=== PATIENT | female | born 1975 | race Caucasian/White ===

== ENCOUNTER 2021-04-24 09:24 | Emergency (ER) | payer MEDICAID ==
[~2021-04-24] VITALS: Ht 160 cm; Wt 73.0 kg
[2021-04-24] MEDS ORDERED: FLUCONAZOLE 100MG TABLET PO ONE (10:30)
[2021-04-24] MEDS ORDERED: FLUCONAZOLE 150MG TABLET PO NR (11:00)
[2021-04-24 11:44] VITALS: BP 140/78
[2021-04-26 04:08] LABS: NEISSERIA GONORRHOEAE NAA Negative (Negative)
== END 2021-04-24 11:45 | disposition home or self-care (01) ==
LOC: ER 09:31
DX: N76.0 Acute vaginitis (principal); I10 Essential (primary) hypertension; E11.9 Type 2 diabetes mellitus without complications; E78.00 Pure hypercholesterolemia, unspecified; Z98.51 Tubal ligation status
CPT/HCPCS: 87210; 87491; 87591; 99283; Z7610

== ENCOUNTER 2021-06-04 17:38 | Emergency (ER) | payer MEDICAID ==
[~2021-06-04] VITALS: Ht 167.6 cm; Wt 82.0 kg
[2021-06-04] MEDS ORDERED: TC1U15 TP (20:18)
[2021-06-04 20:32] VITALS: BP 149/68
== END 2021-06-04 20:49 | disposition home or self-care (01) ==
LOC: ER 17:38
DX: E11.65 Type 2 diabetes mellitus with hyperglycemia (principal); Z91.128 Patient's intentional underdosing of medication regimen for other reason; R94.31 Abnormal electrocardiogram [ECG] [EKG]; S40.862A Insect bite (nonvenomous) of left upper arm, initial encounter; S40.861A Insect bite (nonvenomous) of right upper arm, initial encounter; W57.XXXA Bitten or stung by nonvenomous insect and other nonvenomous arthropods, initial encounter; Y93.89 Activity, other specified; Y92.89 Other specified places as the place of occurrence of the external cause; Z79.4 Long term (current) use of insulin
CPT/HCPCS: 82962; 93005; 99284

== ENCOUNTER 2021-08-02 10:09 | Emergency (ER) | payer MEDICAID ==
[~2021-08-02] VITALS: Ht 154.9 cm; Wt 72.0 kg
[~2021-08-02 10:09] MED LIST: TC1U15 TP
[2021-08-02 11:58] LABS: BASOPHILS % 0.4 % (0.0-2.0); EOSINOPHILS % 0.4 % (0.0-5.0); HEMOGLOBIN. 14.3 g/dL (12.0-16.0); LYMPHOCYTES % 28.8 % (20.0-50.0); MEAN CORPUSCULAR HEMOGLOBIN 31.1 pg (28.0-32.0); MEAN CORPUSCULAR VOLUME 91.5 fL (81.0-99.0); MEAN PLATELET VOLUME 8.4 fl (7.4-10.4); MONOCYTES % 6.6 % (2.0-8.0); NEUTROPHILS % 63.8 % (40.0-76.0); PLATELET 241 x1000/uL (130-400); RED BLOOD CELL COUNT 4.59 mill/uL (4.2-5.4); RED CELL DISTRIBUTION WIDTH 13.2 % (11.6-14.6)
[2021-08-02 11:59] LABS: CHLORIDE 103 mEq/L (98-107)
[2021-08-02 14:42] LABS: CLARITY URINE CLEAR (CLEAR); COLOR URINE DARK YELLOW (YELLOW); KETONES URINE 3+ (NEGATIVE); LEUKOCYTE ESTERASE URINE NEGATIVE (NEGATIVE); NITRITE URINE NEGATIVE (NEGATIVE); OCCULT BLOOD URINE NEGATIVE (NEGATIVE); PH URINE 5.5 (4.5-8.0); PROTEIN URINE 1+ (NEGATIVE); SPECIFIC GRAVITY URINE 1.047 (1.005-1.030); UROBILINOGEN URINE 0.2 E.U./dL (0.2-1.0)
[2021-08-02 15:40] VITALS: BP 127/76
== END 2021-08-02 15:41 | disposition home or self-care (01) ==
LOC: ER 10:09
DX: R61 Generalized hyperhidrosis (principal); E11.65 Type 2 diabetes mellitus with hyperglycemia; I10 Essential (primary) hypertension; E78.5 Hyperlipidemia, unspecified
CPT/HCPCS: 36415; 80053; 81003; 82962; 84443; 85025; 99283

== ENCOUNTER 2021-12-30 15:04 | Emergency (ER) | payer MEDICAID ==
[~2021-12-30] VITALS: Ht 165.1 cm; Wt 65.0 kg
[2021-12-30] MEDS ORDERED: DOCU100T PO (17:58)
[2021-12-30 18:17] VITALS: BP 128/75
== END 2021-12-30 18:18 | disposition home or self-care (01) ==
LOC: ER 15:04
DX: K62.5 Hemorrhage of anus and rectum (principal); E78.00 Pure hypercholesterolemia, unspecified; I10 Essential (primary) hypertension; E11.9 Type 2 diabetes mellitus without complications; Z98.51 Tubal ligation status
CPT/HCPCS: 99282

== ENCOUNTER 2022-03-30 10:10 | Emergency (ER) | payer MEDICAID, OTHER ==
[~2022-03-30] VITALS: Ht 157.5 cm; Wt 68.0 kg
[~2022-03-30 10:10] MED LIST changes: +DOCU100T PO
[2022-03-30 10:28] VITALS: BP 116/61
== END 2022-03-30 12:28 | disposition home or self-care (01) ==
LOC: ER 10:10
DX: F41.9 Anxiety disorder, unspecified (principal); I10 Essential (primary) hypertension; E11.9 Type 2 diabetes mellitus without complications; E78.00 Pure hypercholesterolemia, unspecified
CPT/HCPCS: 99281